=== PATIENT | male | born 1960 | race Hispanic/Latino ===

== ENCOUNTER 2018-05-11 14:11 | Emergency (ER) | payer OTHER ==
[2018-05-11] MEDS ORDERED: NACL 0.9% 1000 ML 1,000 ML ONE (14:30)
[2018-05-11 15:01] LABS: Basophils % (Auto) 0.4 % (0.0-1.8); Eosinophils # (Auto) 0.2 K/mm3 (0.0-0.4); Eosinophils % (Auto) 3.7 % (0.0-4.3); Hematocrit 46.2 % (35.5-45.6); Hemoglobin 15.6 gm/dl (11.8-15.2); Lymphocytes % (Auto) 30.1 % (13.4-35.0); Mean Corpuscular HGB Conc 34 % (32-34); Mean Corpuscular Hemoglobin 32 pg (28-32); Mean Corpuscular Volume 95 fl (84-94); Monocytes # (Auto) 0.6 K/mm3 (0.0-0.8); Monocytes % (Auto) 8.9 % (0.0-7.3); Platelet Count 207 K/mm3 (140-440); Red Blood Count 4.87 M/mm3 (3.65-5.03); Red Cell Distribution Width 13.6 % (13.2-15.2)
[2018-05-11 15:11] LABS: BUN/Creatinine Ratio 13; Blood Urea Nitrogen 14 mg/dL (9-20); Calcium 9.3 mg/dL (8.4-10.2); Hemolysis Index 27
[2018-05-11 15:13] LABS: INR 1.03 (0.87-1.13); Partial Thromboplastin Time 22.6 Sec. (24.2-36.6)
--- NOTE | 2018-05-11 15:16 | XRay Report ---
FINAL REPORT EXAM: XR CHEST 1V AP HISTORY: hypertension TECHNIQUE: Chest, portable upright PRIORS: None. FINDINGS: The heart size is normal. Mediastinal contours are normal. Pulmonary vasculature is not congested. The lungs are clear. There are no pleural effusion seen. There is no evidence of pneumothorax. IMPRESSION: There is no acute abnormality identified.
[2018-05-11 15:17] LABS: Alanine Aminotransferase 20 units/L (7-56); Albumin 4.1 g/dL (3.9-5)
--- NOTE | 2018-05-11 15:20 | Cat Scan Report ---
CRANIAL CT SCAN: Dizziness Serial contiguous axial images were obtained through the cranium. Intravenous contrast material was not administered. The ventricles are normal in size and appearance. There is no mass effect or midline shift. No areas of abnormally increased or decreased attenuation are seen. No mass lesion is seen. The mastoid air cells and visualized portions of the sinuses are normal. IMPRESSION: Cranial CT scan within normal limits.
[2018-05-11 15:21] LABS: Bilirubin,Direct < 0.2 mg/dL (0-0.2)
--- NOTE | 2018-05-11 15:41 | Emergency Department Report ---
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 He stated that he felt like he was going to pass out. He did not experience headache. He states that his blood pressure was in the 170s systolic in the office and his heart rate was in the 90s. He denied any focal neurological change. He has a pre-existing abducens nerve palsy. He has had an MR to work this up in June. He stated that initially his sedimentation rate was somewhat elevated but later it returned to normal. He states that he did have diplopia but it has largely resolved. He denies any worsening of his extra ocular palsy type symptoms. He denies any change in his vision whatsoever. He denied any facial numbness or tingling. He denied any difficulty in speech or focal weakness or numbness of the extremities. He was not experiencing chest pain or shortness of breath. He states he has not had a similar such episode. Other than the abducens nerve palsy he is well and does not take any prescription medicine. He has had no prior hospitalizations or surgery. He states that coronary artery disease and cerebrovascular disease do not run in his family and that both his parents are alive in the mid to late 80s. He does not smoke. He has recently returned from [facility] and and [place]. He returned on Tuesday. He does not report any problems over there or any leg pain or cramping or shortness of breath whatsoever. He stated that he worked out on his home exercise equipment for "about 10 miles" this a.m. -: Sudden Quality: other (denied any pain) Consistency: now resolved Improves with: none Worsens with: none Associated Symptoms: denies other symptoms Treatments Prior to Arrival: none - Related Data Home Medications Medication Instructions Recorded Confirmed Last Taken No Known Home Medications [No 05/11/18 05/11/18 Unknown Reported Home Medications] Allergies Allergy/AdvReac Type Severity Reaction Status Date / Time No Known Allergies Allergy Unverified 05/11/18 14:26 ED Review of Systems ROS: Stated complaint: DIZZY Other details as noted in HPI Constitutional: denies: chills, fever Eyes: denies: eye pain, eye discharge, vision change ENT: denies: ear pain, throat pain Respiratory: denies: cough, shortness of breath, wheezing Cardiovascular: syncope. denies: chest pain, palpitations Endocrine: no symptoms reported Gastrointestinal: denies: abdominal pain, nausea, diarrhea Genitourinary: denies: urgency, dysuria Musculoskeletal: denies: back pain, joint swelling, arthralgia Skin: denies: rash, lesions Neurological: denies: headache, weakness, paresthesias Psychiatric: denies: anxiety, depression Hematological/Lymphatic: denies: easy bleeding, easy bruising ED Past Medical Hx - Past Medical History Previous Medical History?: No - Social History Smoking Status: Never Smoker Substance Use Type: None - Medications Home Medications: Home Medications Medication Instructions Recorded Confirmed Last Taken Type No Known Home Medications [No 05/11/18 05/11/18 Unknown History Reported Home Medications] ED Physical Exam - General Limitations: No Limitations General appearance: alert, in no apparent distress, other (somewhat volume depleted) - Head Head exam: Present: atraumatic, normocephalic - Eye Eye exam: Present: normal appearance, PERRL, EOMI. Absent: scleral icterus - ENT ENT exam: Present: mucous membranes moist - Neck Neck exam: Present: normal inspection. Absent: tenderness, meningismus - Respiratory Respiratory exam: Present: normal lung sounds bilaterally. Absent: respiratory distress - Cardiovascular Cardiovascular Exam: Present: regular rate, normal rhythm. Absent: systolic murmur, diastolic murmur, rubs, gallop - GI/Abdominal GI/Abdominal exam: Present: soft, normal bowel sounds. Absent: distended, tenderness, guarding, rebound, rigid - Rectal Rectal exam: Present: deferred - Extremities Exam Extremities exam: Present: normal inspection - Back Exam Back exam: Present: normal inspection - Neurological Exam Neurological exam: Present: alert, oriented X3. Absent: CN II-XII intact (case was somewhat disconjugate in the lateral extreme on both sides. Left greater than right), motor sensory deficit (no drift of upper and lower, NIH stroke score was negative through all axes sees. The patient's cranial nerve problem is chronic and is not scorable. His NIH stroke score is 0.) - Psychiatric Psychiatric exam: Present: normal affect, normal mood - Skin Skin exam: Present: warm, dry, intact, normal color. Absent: rash ED Course Vital Signs 05/11/18 05/11/18 05/11/18 14:16 15:48 16:00 Temperature 98.2 F Pulse Rate 79 69 Respiratory 10 L 17 Rate Blood Pressure 166/89 149/102 155/91 O2 Sat by Pulse 100 97 Oximetry - Reevaluation(s) Reevaluation #1: Patient fully ambulatory about the emergency department. He states that he has been seen by cardiology and had a bedside echo which he is reporting the deputy head said was normal. He does look much better hydrated. He is asymptomatic at this time. He is requesting discharge. He spoke to Dr. Stewart and myself. 05/11/18 17:08 ED Medical Decision Making - Lab Data Result diagrams: 05/11/18 14:36 05/11/18 14:36 Laboratory Results - last 24 hr 05/11/18 05/11/18 05/11/18 14:36 14:36 14:36 WBC 6.5 RBC 4.87 Hgb 15.6 H Hct 46.2 H MCV 95 H MCH 32 MCHC 34 RDW 13.6 Plt Count 207 Lymph % (Auto) 30.1 [place] % (Auto) 8.9 H Eos % (Auto) 3.7 Baso % (Auto) 0.4 Lymph # 2.0 [place] # 0.6 Eos # 0.2 Baso # 0.0 Seg Neutrophils % 56.9 Seg Neutrophils # 3.7 PT 14.0 INR 1.03 APTT 22.6 L D-Dimer < 135.00 Sodium 140 Potassium 4.1 Chloride 102.6 Carbon Dioxide 24 Anion Gap 18 BUN 14 Creatinine 1.1 Estimated GFR > 60 BUN/Creatinine Ratio 13 Glucose 97 Lactic Acid Calcium 9.3 Magnesium Total Bilirubin Direct Bilirubin Indirect Bilirubin AST ALT Alkaline Phosphatase Troponin T < 0.010 NT-Pro-B Natriuret Pep Total Protein Albumin Albumin/Globulin Ratio 05/11/18 05/11/18 14:36 14:36 WBC RBC Hgb Hct MCV MCH MCHC RDW Plt Count Lymph % (Auto) [place] % (Auto) Eos % (Auto) Baso % (Auto) Lymph # [place] # Eos # Baso # Seg Neutrophils % Seg Neutrophils # PT INR APTT D-Dimer Sodium Potassium Chloride Carbon Dioxide Anion Gap BUN Creatinine Estimated GFR BUN/Creatinine Ratio Glucose Lactic Acid 2.20 H* Calcium Magnesium 2.00 Total Bilirubin 0.40 Direct Bilirubin < 0.2 Indirect Bilirubin 0.2 AST 21 ALT 20 Alkaline Phosphatase 65 Troponin T NT-Pro-B Natriuret Pep 40.48 Total Protein 6.9 Albumin 4.1 Albumin/Globulin Ratio 1.5 - EKG Data -: EKG Interpreted by Me EKG shows normal: sinus rhythm, axis, intervals, QRS complexes, ST-T waves Rate: normal - EKG Data Interpretation: no acute changes - Radiology Data Radiology results: report reviewed interpreted by me: MRI of the brain is normal except for pre-pontine cyst in left abducens nerve increased signal. MRA is normal. CT the head is normal. Chest x-ray no acute process. Critical care attestation.: If time is entered above; I have spent that time in minutes in the direct care of this critically ill patient, excluding procedure time. ED Disposition Clinical Impression: Near syncope, Labile hypertension, Volume depletion Abducens nerve palsy Qualifiers: Laterality: left Qualified Code(s): H49.22 - Sixth [abducent] nerve palsy, left eye Disposition: DC- TO HOME OR SELFCARE Is pt being admited?: No Does the pt Need Aspirin: No Condition: Stable Instructions: Hypertension (ED), Dehydration (ED) Additional Instructions: Return as needed any further symptoms. Monitor your blood pressure. Keep your appointment with cardiology as planned. Increase fluids. Baby aspirin every night. Referrals: PRIMARY CARE, [Primary Care Provider] - 3-5 Days Time of Disposition: 17:10
[2018-05-11 15:42] LABS: Bilirubin,Urine NEG (Negative); Blood,Urine NEG (Negative); Color,Urine Yellow (Yellow); Protein,Urine <15 mg/dL mg/dL (Negative); Urobilinogen,Urine < 2.0 mg/dL (<2.0)
[2018-05-11] MEDS ORDERED: NACL 0.9% 1000 ML 1,000 ML IV ONE ×2 (16:11→16:50)
--- NOTE | 2018-05-11 16:11 | Magnetic Resonance Report ---
MRI BRAIN WITHOUT CONTRAST: 05/11/18 CLINICAL: Cranial nerve palsy and dizziness. TECHNIQUE: Axial diffusion, T1, T2, FLAIR, gradient echo T2*, and sagittal T1 sequences on a 1.5 Anna magnet. FINDINGS: Normal ventricles and sulci. No restricted diffusion and no abnormal brain signal. No mass or mass effect. No hemorrhage, edema or extra-axial collection. Mild focal T2 hyperintensity of the left joan with no corresponding hyperintensity on FLAIR or diffusion sequences. The brainstem is otherwise normal. The right abducens nerve is normal in the pre-pontine cistern. There is possible enlargement of the left abducens nerve in the pre-pontine cistern. Abnormal signal in the location of the left nerve may be a flow artifact or an artifact from the adjacent basilar artery. The cerebellum is normal. Intact vascular flow voids. Normal pituitary and optic chiasm. Mild bilateral ethmoid and maxillary sinus mucoperiosteal thickening. No air-fluid levels in the sinuses. The orbits, and soft tissues are normal. Normal calvarium and skull base. IMPRESSION: 1. No evidence of acute/subacute infarct or hemorrhage. 2. Possible enlargement of the left abducens nerve in the prepontine cistern. Thin section T2 and thin section T1 without and with postcontrast sequences of the brain stem may resolve this question of enlargement of the left abducens nerve. 3. Nonspecific left pontine focal hyperintense T2 signal. 4. Mild sinusitis.
--- NOTE | 2018-05-11 16:14 | Magnetic Resonance Report ---
MRA HEAD WITHOUT CONTRAST: 05/11/18 14:11:00 CLINICAL: 6th nerve palsy TECHNIQUE: Axial 3-D [id number] MR angiography of the [facility] with review of axial source images. FINDINGS: Intact [facility] with no aneurysm, stenosis or occlusion. Symmetric blood flow in the anterior, middle and posterior cerebral arteries. Normal basilar and vertebral arteries. IMPRESSION: Normal study.
[2018-05-11] MEDS ORDERED: REGLAN PO PRN (16:56)
[2018-05-11] MEDS ORDERED: MILK OF MAGNESIA PO PRN (16:56)
[2018-05-11] MEDS ORDERED: DULCOLAX PR PRN (16:56)
[2018-05-11] MEDS ORDERED: TYLENOL PO PRN (16:56)
[2018-05-11] MEDS ORDERED: ZOFRAN IV PRN (16:56)
[2018-05-11] MEDS ORDERED: SODIUM CHLORIDE FLUSH SYRINGE 10 ML IV PRN (16:56)
[2018-05-11] MEDS ORDERED: PHENERGAN PR PRN (16:56)
--- NOTE | 2018-05-11 16:59 | History and Physical Report ---
History of Present Illness Chief complaint: I feel dizzy History of present illness: 57 YO Male with No PMH presents to ED for evaluation. Pt seates that he felt dizzy and lightheaded after cycling approximately 10 miles today. Pt seen and evaluated in ED, and was initially treated as a code stroke. The code stroke was cancelled, and patient was treated with telemetry monitoring, IVF resuscitation therapy and supportive care. Pt symptoms resolved after IVF resuscitation. Pt medically optimized and back to usual state of health. Pt discharged home and instructed to hydrate 12 hours prior to physical exertion, and to f/u pcp 1wk, and cardiology prn for further evaluation. Past History Past Medical History: No medical history, other (reviewed) Past Surgical History: No surgical history, Other (reviewed) Social history: single. denies: smoking, alcohol abuse, prescription drug abuse Family history: no significant family history (reviewed) Medications and Allergies Allergies Allergy/AdvReac Type Severity Reaction Status Date / Time No Known Allergies Allergy Unverified 05/11/18 14:26 Home Medications Medication Instructions Recorded Confirmed Last Taken Type No Known Home Medications [No 05/11/18 05/11/18 Unknown History Reported Home Medications] Active Meds: Active Medications Acetaminophen (Tylenol) 650 mg PO Q4H PRN PRN Reason: Pain, Mild (1-3) Aspirin (Aspirin) 325 mg PO QDAY NASREEN Bisacodyl (Dulcolax) 10 mg DC QDAY PRN PRN Reason: Constipation Sodium Chloride (Nacl 0.9% 1000 Ml) 1,000 mls @ 999 mls/hr IV BOLUS ONE Stop: 05/11/18 17:11 Last Admin: 05/11/18 16:05 Dose: 999 mls/hr Sodium Chloride (Nacl 0.9% 1000 Ml) 1,000 mls @ 999 mls/hr IV BOLUS ONE Stop: 05/11/18 17:50 Last Admin: 05/11/18 16:51 Dose: 999 mls/hr Magnesium Hydroxide (Milk Of Magnesia) 30 ml PO Q4H PRN PRN Reason: Constipation Metoclopramide HCl (Reglan) 10 mg PO Q6H PRN PRN Reason: Nausea And Vomiting Ondansetron HCl (Zofran) 4 mg IV Q8H PRN PRN Reason: N/V unrelieved by Reglan Promethazine HCl (Phenergan) 25 mg DC Q6H PRN PRN Reason: Nausea And Vomiting Sodium Chloride (Sodium Chloride Flush Syringe 10 Ml) 10 ml INJ PRN PRN PRN Reason: LINE FLUSH Review of Systems Constitutional: other (dizziness) Ears, nose, mouth and throat: no ear pain, no ear discharge, no tinnitis, no decreased hearing, no nasal congestion Cardiovascular: no chest pain, no orthopnea, no palpitations, no rapid/ irregular heart beat, no edema, no syncope, no lightheadedness, no dyspnea on exertion, no paroxysmal nocturnal dyspnea Respiratory: no cough, no cough with sputum, no excessive sputum, no hemoptysis , no shortness of breath, no dyspnea on exertion Gastrointestinal: no abdominal pain, no nausea, no vomiting, no diarrhea, no constipation, no change in bowel habits, no hematemesis Genitourinary Male: no dysuria, no hematuria, no flank pain, no discharge, no urinary frequency, no urinary hesitancy, no nocturia, no incontinence Rectal: no pain, no incontinence, no bleeding Musculoskeletal: no neck stiffness, no neck pain, no shooting arm pain, no arm numbness/tingling, no low back pain, no shooting leg pain, no leg numbness/ tingling Integumentary: no rash, no pruritis, no redness, no sores, no wounds, no jaundice, no boils, no blisters Neurological: confusion, no head injury, no transient paralysis, no paralysis, no weakness, no parathesias, no numbness, no tingling, no headaches, no migraines, no convulsions Psychiatric: no anxiety, no memory loss, no change in sleep habits, no sleep disturbances, no insomnia, no hypersomnia, no change in appetite Endocrine: no cold intolerance, no heat intolerance, no polyphagia, no excessive thirst, no polydipsia, no polyuria, no nocturia, no excessive sweating Hematologic/Lymphatic: no easy bruising, no easy bleeding, no lymphadenopathy, no lymphedema Allergic/Immunologic: no urticaria, no allergic rhinitis, no wheezing, no persistent infections, no anaphylaxis, no angioedema Exam - Constitutional Vitals: Temp Pulse Resp BP Pulse Ox 98.2 F 69 17 155/91 97 05/11/18 14:16 05/11/18 16:00 05/11/18 16:00 05/11/18 16:00 05/11/18 16:00 General appearance: Present: no acute distress, well-nourished - EENT Eyes: Present: PERRL ENT: hearing intact, clear oral mucosa - Neck Neck: Present: supple, normal ROM - Respiratory Respiratory effort: normal Respiratory: bilateral: CTA - Cardiovascular Heart Sounds: Present: S1 & S2. Absent: rub, click - Extremities Extremities: pulses symmetrical, No edema Peripheral Pulses: within normal limits - Abdominal General gastrointestinal: Present: soft, non-tender, non-distended, normal bowel sounds Male genitourinary: Present: normal - Integumentary Integumentary: Present: clear, warm, dry - Musculoskeletal Musculoskeletal: gait normal, strength equal bilaterally - Psychiatric Psychiatric: appropriate mood/affect, intact judgment & insight - Neurologic Neurologic: CNII-XII intact, moves all extremities Results - Labs CBC & Chem 7: 05/11/18 14:36 05/11/18 14:36 Labs: Abnormal lab results 05/11/18 05/11/18 05/11/18 Range/Units 14:36 14:36 14:36 Hgb 15.6 H (11.8-15.2) gm/dl Hct 46.2 H (35.5-45.6) % MCV 95 H (84-94) fl [place] % (Auto) 8.9 H (0.0-7.3) % APTT 22.6 L (24.2-36.6) Sec. Lactic Acid 2.20 H* (0.7-2.0) mmol/L Assessment and Plan - Patient Problems (1) Near syncope Status: Acute Plan to address problem: IVF resuscitation, telemetry, CT Head, MRI, Echo unremarkable, Discharge home, f /u pcp 1wk, cardiology 1 wk. (2) Volume depletion Status: Acute Plan to address problem: IVF resuscitation, monitor uop ,
[2018-05-11] MEDS ORDERED: NACL 0.9% 1000 ML 2,000 ML IV ONE (17:29)
[2018-05-11 18:17] VITALS: BP 148/97
[2018-05-12] MEDS ORDERED: ASPIRIN PO SCH (10:00)
[2018-05-15 23:03] LABS: ANA Screen, IFA Negative (Negative)
== END 2018-05-11 18:15 | disposition home or self-care (01) ==
LOC: ED 14:11 → 4A 16:48 → UNDOADMIN 16:48 → ED 18:15
DX: H49.22 Sixth [abducent] nerve palsy, left eye (principal); I10 Essential (primary) hypertension; E86.9 Volume depletion, unspecified
CPT/HCPCS: 36415; 70450; 70544; 70551; 71045; 80048; 80074; 81001; 82140; 82962; 83735; 83880; 84484; 85025; 85379; 85610; 85730; 86038; 86618; 87086; 93306; 96360; 96361; 99285; J7030